=== PATIENT | male | born 1995 | race Caucasian/White ===

== ENCOUNTER 2021-10-10 06:31 | Day surgery (SDC) | payer MEDICARE, MEDICAID, SELFPAY ==
[2021-10-08 16:07] VITALS: BMI 37.5
--- NOTE | 2021-10-09 11:52 | P.CONAN_ITS ---
Documented by User: Hodan Domingo NP 10/09/21 11:53 HPI - Anesthesia Eval Consult details Narrative: 26yo M for Bilateral Eye Muscle lateral rectus Recession, right superior rectus recession MTF transgender (she/her, Loraine) [facility], [facility] Past Medical History Medical History (Updated 10/08/21 @ 16:07 by Anna Cavazos, RN) Anxiety Depression Gender dysphoria History of COVID-19 HTN (hypertension) Hydrocephalus Surgical History Surgical History (Updated 10/09/21 @ 08:31 by Anna Cavazos, RN) History of eye surgery Hx of brain surgery Social History Social History Household Members Other:: Parents Are you a primary adult live in caregiver to a significant other at home: No Do you presently have visiting nurse or other home services: No Have you been hit, kicked, punched, or otherwise hurt by someone within the past year? If so, by whom?: No Are you DNR?: No Advance Directives: No Advance Directives Information Provided: Yes Advance Directives on File: No Recently lost weight without trying: No Eating poorly because of decreased appetite: No Nutrition Risks: No Nutritional Risk Meds Allergies Allergy/AdvReac Type Severity Reaction Status Date / Time latex Allergy Unknown Unknown Verified 10/09/21 11:11 Home Medications Medication Instructions Recorded Confirmed Last Taken Type albuterol sulfate 90 mcg/actuation 2 puff PO QID PRN wheezing 10/08/21 10/08/21 Unknown History aerosol inhaler bupropion HCl 200 mg tablet,12 hr 1 tab PO QAM 10/08/21 10/08/21 Unknown History sustained-release diltiazem HCl 180 mg 1 cap PO DAILY 10/08/21 10/08/21 Unknown History capsule,extended release 24 hr estradiol valerate 40 mg/mL 0.1 ml IM QWEEK 10/08/21 10/08/21 Unknown History intramuscular oil hydroxyzine HCl 10 mg tablet 1 tab PO DAILY PRN anxiety 10/08/21 10/08/21 Unknown History spironolactone 50 mg tablet 1 tab PO BID 10/08/21 10/08/21 Unknown History Exam Exam Date and Time: October 09, 2021 1152 Height,Weight and Vital Signs: Height 6 ft 1 in Weight 129.274 kg Assessment and Plan Assessment Anesthesia Assessment: Chart Reviewed Documented by User: Paulette Law MD 10/10/21 09:57 PMFSH Past Medical History Medical History (Updated 10/08/21 @ 16:07 by Anna Cavazos RN) Anxiety Depression Gender dysphoria History of COVID-19 HTN (hypertension) Hydrocephalus Family History Family history of problems with anesthesia: No Surgical History Surgical History (Updated 10/09/21 @ 08:31 by Anna Cavazos RN) History of eye surgery Hx of brain surgery History of Problems with Anesthesia: No Social History Social History Household Members Other:: Parents Are you a primary adult live in caregiver to a significant other at home: No Do you presently have visiting nurse or other home services: No Have you been hit, kicked, punched, or otherwise hurt by someone within the past year? If so, by whom?: No Are you DNR?: No Advance Directives: No Advance Directives Information Provided: Yes Advance Directives on File: No Recently lost weight without trying: No Eating poorly because of decreased appetite: No Nutrition Risks: No Nutritional Risk Meds Allergies Allergy/AdvReac Type Severity Reaction Status Date / Time latex Allergy Unknown Unknown Verified 10/09/21 11:11 Home Medications Medication Instructions Recorded Confirmed Last Taken Type albuterol sulfate 90 mcg/actuation 2 puff PO QID PRN wheezing 10/08/21 10/08/21 Unknown History aerosol inhaler bupropion HCl 200 mg tablet,12 hr 1 tab PO QAM 10/08/21 10/08/21 Unknown History sustained-release diltiazem HCl 180 mg 1 cap PO DAILY 10/08/21 10/08/21 Unknown History capsule,extended release 24 hr estradiol valerate 40 mg/mL 0.1 ml IM QWEEK 10/08/21 10/08/21 Unknown History intramuscular oil hydroxyzine HCl 10 mg tablet 1 tab PO DAILY PRN anxiety 10/08/21 10/08/21 Unkno wn History spironolactone 50 mg tablet 1 tab PO BID 08/15/22 08/15/22 Unknown History Exam Airway Mallampati Class: II TM Dist: >3cm Neck ROM: Full Assessment and Plan Assessment Anesthesia Assessment: Anesthesia Plan Discussed Final Anesthetic Review Family History of Problems with Anesthesia: No History of Problems with Anesthesia: No NPO: Yes ASA Class: III Final Preanesthetic Review: No Changes in Pt Med Stat, Meds/Allgs Chart Reviewed, Consent Obtained/Reviewed and Anes Risks/Benef Reviewed Patient Risk: Low Procedure Risk: Low Anesthetic Plan Anesthetic Plan: GA Disposition: Standard PACU
[2021-10-10] VITALS (11 sets, daily range): BP systolic 113–154; BP diastolic 70–85; PULSE 77–104; RESP 16–25; TEMP 36.1–36.4; O2SAT 98–100
[2021-10-10] MEDS: Lactated Ringers 1,000 ML 100 ML IVCONT (10:33)
[2021-10-10] MEDS: Tetracaine HCl/PF 0.5% Oph Sol 4 ML DROPS 1 DROP EYE-BOTH (13:54)
[2021-10-10] MEDS: Acetaminophen 325 MG TABLET 650 MG PO (13:56)
[2021-10-10] MEDS: oxyCODONE HCl Immed Release 5 MG TABLET PO (13:56)
--- NOTE | 2021-10-10 14:41 | HO.OPHTHAL ---
Ophthalmology Operative Note Date of Service: 10/10/21 Narrative: Diagnoses 1. Exotropia. 2. Right hypertropia. Procedures 1. Bilateral medial rectus resections of 5 mm. 2. Recession of right superior rectus muscle [address] Burger anesthesia general complications none. The patient was brought to the operative room placed under general anesthesia. The patient's eyes were prepped and draped in the usual sterile ophthalmic fashion. A lid speculum was placed in the right eye and an incision was made down to bare sclera in the inferotemporal fornix. The lateral rectus muscle was found to have been previously operated on so an incision was made down to bare sclera in the inferonasal fornix. The medial rectus muscle was hooked and secured with a Molino muscle clamp. A 5 mm resection was marked off with cautery and the resection point secured with a double-armed Vicryl suture. The distal muscle was then resected and the resection point drawn forward to the original insertion using the Vicryl suture. Conjunctiva was closed with interrupted Vicryl sutures. An incision was then made down to bare sclera in the superotemporal fornix. The superior rectus muscle was hooked and secured with a double-armed Vicryl suture. It was then disinserted from the globe and reattached to a position 3 mm behind the original insertion using a hang back technique. Conjunctiva was closed with interrupted Vicryl sutures. An identical procedure was then performed on the left eye with the exception that only the medial rectus muscle was resected. The patient was then awoke from general anesthesia and discharged to postop recovery in good condition.
== END 2021-10-10 16:03 | disposition home or self-care (01) ==
PROVIDERS: PCP Internal Medicine; Visit Provider Ophthalmology
PROC: (CPT 67311; principal; 2021-10-10 09:30)
DX: H50.111 Monocular exotropia, right eye (principal); H50.21 Vertical strabismus, right eye; I10 Essential (primary) hypertension; G91.9 Hydrocephalus, unspecified; F41.8 Other specified anxiety disorders; F64.9 Gender identity disorder, unspecified; Z79.899 Other long term (current) drug therapy; Z91.040 Latex allergy status; Z98.890 Other specified postprocedural states
CPT/HCPCS: 67311; 67314; C1713; J1100; J1885; J2250; J2405; J2550